=== PATIENT | male | born 2000 | race Caucasian/White ===

== ENCOUNTER 2024-07-17 16:25 | Emergency (ER) | payer MEDICAID, SELFPAY ==
[2024-07-17 16:29] VITALS: BP 144/89; PULSE 95; RESP 20; TEMP 36.9; O2SAT 97
--- NOTE | 2024-07-17 16:40 | PD.EDADULT ---
ED General RME/HPI General Chief complaint: Psychiatric Symptoms Stated complaint: MENTAL EVALUATION Time Seen by Provider: 07/17/24 16:37 Arrival date/time: 07/17/24 16:25 CC: 5150 medical clearance HPI patient is developmentally delayed, presents to the ER via EMS reports stable vital signs. The patient has occasional outbursts but is not aggressive or confrontational. Patient was witnessed throwing rocks at police when they approached the patient when the patient is asked how he is doing, the patient responded he wanted some video games. Patient is awake alert oriented to self only. Review the medical record show no prior visits to this emergency room. I do not know what this patient's baseline function is Related Data Previous Rx's ?Medication ?Instructions ?Recorded ibuprofen 600 mg tablet 600 mg PO Q8H PRN fever or pain 02/12/24 #20 tabs Allergies Allergy/AdvReac Type Severity Reaction Status Date / Time orange Allergy Severe Hives Verified 07/17/24 17:09 red dye Allergy Severe Hives Verified 07/17/24 17:09 Review of Systems Review of Systems ROS Unobtainable: unobtainable due to mental status Past Medical History Social History SMOKING STATUS: Never smoker ED Exam Narrative Physical exam: [General: Appears not in any acute distress, hyperactive with nonpurposeful outbursts, playing with toys on the gurney. Head normocephalic HEENT: Within acceptable limits Neck is supple nontender Chest equal chest rise nontender to palpation Respiratory: Clear to auscultation no wheezes crackles or rubs CV: Rate rhythm is regular no murmurs rubs or clicks Abdomen is soft nontender no masses positive bowel sounds all 4 quadrants Back: No CVA tenderness no spinous process tenderness from cervical spine thoracic and lumbar spine Skin: Intact no petechiae rash induration ulceration or crepitus Extremities: Moving all extremities against resistance cap refill less than 2 seconds neurosensory intact Neuro: Awake alert oriented x 1, self, answering simple questions appropriately. Course Course Course Narrative: Reassessed the patient at 1720, the patient seems to have a baseline loud voice stress demeanor, but is not aggressive towards anybody has not been destructive throwing items and has been asking for things to play with. At this time and to clear the patient medically as he has stable vital signs and his baseline behavior appears to be unchanged. Quality Measures none Orders Category Date Time Status CMP [Comprehensive Metabolic Panel] Stat Lab 07/17/24 16:52 Cancelled Vital Signs Vital signs: Vital Signs Temperature 98.4 F 07/17/24 16:29 Pulse Rate 95 07/17/24 16:29 Respiratory Rate 20 07/17/24 16:29 Blood Pressure 144/89 H 07/17/24 16:29 Pulse Oximetry (%) 97 07/17/24 16:29 Oxygen Delivery Method Room Air 07/17/24 16:29 MDM Patient data External records reviewed:: [facility] previous records and EMS form Clinical information provided by:: patient, EMS and law enforcement Social determinants that could affect healthcare access:: none Patient has the following chronic illnesses:: Developmental delay How is presenting disease/condition affected by chronic disease/condition?: exacerbated by Evaluation data The following diagnostics were reviewed and interpreted by me:: other (specify) (None) Lab and/or radiology exams considered but not ordered:: None Interpretation Summary: Developmentally delayed wandered from the home, care providers are here to pick the patient up he is afebrile nontoxic-appearing not in any acute distress. Medications Medications considered but not ordered:: None Medication administrations:: None Consultations Consultation(s) initiated? (list below): No Diagnosis Differential Diagnosis ED Complaint MDM: Schizophrenia, aggressive behavior, developmentally delay Most likely diagnosis given after review of the tests above:: Developmental delay Admission Indicated Admission indicated?: not indicated Explain why admission is indicated or not indicated:: Stable for discharge Admission Request Was there a request for admission?: No Disposition Plan Disposition Plan: Discharge Discharge Attestation Discharge Attestation: The patient and all family members were given an opportunity to ask questions and understood the discharge instructions. Discharge instructions specifically effects, indications for sooner follow up or return to the emergency department, and the expected course of current diagnosis. Patient condition: Stable Medical Decision Making Differential Diagnosis Differential Diagnosis: Schizophrenia, aggressive behavior, developmentally delay Discharge Plan Plan Patient Disposition: HOME (Self Care) Patient condition on transfer: Stable Prescriptions/Referrals Prescriptions/Med Rec: No Action ibuprofen 600 mg tablet 600 mg PO Q8H PRN (Reason: fever or pain) Qty: 20 0RF Referrals: Mack Vital MD [Primary Care Provider] - In 1 week Problem List Clinical Impression: Mentally disabled Patient/Caregiver Discharge Instructions Print Language: Rwandan Stand Alone Forms: Shauna Award Info., Patient Portal Info Letter PA/CAN STRIPER Supervising Physician PA/CAN STRIPER Supervising Physician: Guanaco Patel ENP
--- NOTE | 2024-07-17 18:03 | PC.CC ---
ASWJanee attempted to meet and engage patient for mental health evaluation; however, patient is alert but oriented only to self. Patient is not able to engage in assessment. ASW gained collateral information from care provider Mikala Lopez who reports patient is a [facility] Client and his worker is Eli Patel . Patient lives in a [facility] [place] [facility] and the dedicated owner operator is Amira Cole . Today the patient became upset with another client in the home and that other client told the patient fuck you which led to patient becoming emotionally unstable and he eloped from the retirement. The patient was found by a school throwing rocks at cars and then officers responded to the school placed the school on lock down and patient was subsequently transported to the hospital on a 5150-hold by [employer] Officer Allyson. It was reported that patient was also throwing rocks at the Police vehicles and Officers. Per Mikala, patient has never been suicidal or homicidal and does not have visual and auditory hallucinations. Patient is connected to a psychiatrist at [facility] and is seen monthly. Per Mikala, patient has a diagnosis of Severe Mental Retardation. The retirement is able and willing to take the patient back to the home and follow up with his outpatient provider Jass Talley. Upon clinical consultation with Iris ESPAÑA patient does not meet criteria for 5150-hold and hold will be rescinded. RAFATW provided discharge plan to provider Jorge and peace officer Kathy.
--- NOTE | 2024-07-17 18:04 | PC.NURSE ---
Patient stopped answering questions for Burmese suicide scale and psychiatric screening. Patient reside at the [facility]. Caregiver is present and states he is at his baseline. SW also present and resent the hold. States patient has severe mental retardation and does not understand the things being said to him. Patient stopped answering questions during assessment and began intermittently barking. heavy truck technician aware
[2024-07-17 18:10] VITALS: BMI 25.5
[2024-07-17 19:06] VITALS: RESP 18
== END 2024-07-17 19:07 | disposition home or self-care (01) ==
PROVIDERS: Emergency Provider Emergency Medicine; PCP Family Medicine
DX: Z00.8 Encounter for other general examination (principal); F20.9 Schizophrenia, unspecified
CPT/HCPCS: 80053; 80307; 80320; 85025; 90839; 96127; 99284; G0480

== ENCOUNTER 2025-04-24 16:56 | Emergency (ER) | payer MEDICAID, SELFPAY ==
[2025-04-24 17:13] VITALS: BP 112/66; PULSE 76; RESP 19; TEMP 37.2; O2SAT 96; BMI 26.2
--- NOTE | 2025-04-24 17:27 | EDNOTE_ITS ---
ED Wound/Laceration-RME/HPI General Chief Complaint: Wound/Laceration Stated Complaint: WOUND NEXT TO SCROTUM X 4 DAYS Time Seen by Provider: 04/24/25 17:27 Arrival date/time: 04/24/25 16:56 25-year-old male presents to the emergency room today with caregiver who reports that he noticed a small wound in the left inguinal region Limitations: no limitations Related Data Previous Rx's ?Medication ?Instructions ?Recorded ibuprofen 600 mg tablet 600 mg PO Q8H PRN fever or p ain 02/12/24 #20 tabs clindamycin HCl 300 mg capsule 300 mg PO TID 7 days #2 1 caps 04/24/25 ibuprofen 600 mg tablet 600 mg PO Q6H #30 tabs 04/24 mupirocin 2 % topical ointment 1 applic topical TID 10 days #22 04/24/25 grams Allergies Allergy/AdvReac Type Severity Reaction Status Date / Time orange Allergy Severe Hives Verified 07/17/24 17:09 red dye Allergy Severe Hives Verified 07/17/24 17:09 Review of Systems Review of Systems Systems Reviewed: All systems reviewed, normal except as documented ROS Unobtainable: other (Developmental delay) Constitutional Constitutional: Reports system reviewed and no additional complaints, except as documented, Denies fatigue, Denies fever(s) and Denies headache(s) Eyes Eyes: Reports system reviewed and no additional complaints, except as documented ENT Ears, Nose, Mouth, and Throat: Reports system reviewed and no additional complaints, except as documented, Denies dizziness and Denies headache(s) Cardiovascular Cardiovascular: Reports system reviewed and no additional complaints, except as documented, Denies chest pain, Denies dyspnea and Denies dyspnea on exertion Respiratory Respiratory: Reports system reviewed and no additional complaints, except as documented, Denies chest congestion, Denies cough, Denies dyspnea and Denies dyspnea on exertion Gastrointestinal Gastrointestinal: Reports system reviewed and no additional complaints, except as documented, Denies abdominal pain, Denies nausea and Denies vomiting Musculoskeletal Musculoskeletal: Reports system reviewed and no additional complaints, except as documented, Denies abnormal gait, Denies numbness, Denies stiffness and Denies tingling Integumentary/Breasts Skin/Breast: Reports system reviewed and no additional complaints, except as documented, Denies rash and Reports wounds (Left inguinal pain infection) Neurologic Neurologic: Reports system reviewed and no additional complaints, except as documented, Denies abnormal gait, Denies dizziness, Denies headache(s), Denies numbness and Denies tingling Psychiatric Psychiatric: Reports system reviewed and no additional complaints, except as documented and Denies anxiety Endocrine Endocrine: Denies fatigue Past Medical History Past Medical History NEUROLOGIC: Positive Neurological Disorders (Mental retardation) CARDIAC: Negative Cardiac Disorders or Congestive Heart Failure RESPIRATORY: Negative Chronic Obstructive Pulmonary Disease (COPD) GASTROINTESTINAL: Negative Gastrointestinal Disorders GENITOURINARY: Negative Genitourinary Disorders or Renal Disease MUSCULOSKELETAL: Positive Musculoskeletal Disorders (Short stature) ENDOCRINE: Positive Hypothyroidism; Negative Diabetes Mellitus Type 1 or Diabetes Mellitus Type 2 HEMATOLOGIC: Negative Blood Disorders PSYCHO/SOCIAL: Positive Bipolar Disorder, Depression, Anxiety, Behavior Problems and Attention Deficit Hyperactivity Disorder OTHER HISTORY: Positive Developmental Delay Surgical History SURGICAL: Negative Cardiac Surgery Social History SMOKING STATUS: Never smoker ED Exam General Limitations: Present no limitations General appearance: Present alert and in no apparent distress Head Head exam: Present atraumatic Eye Eye exam: Present normal appearance, PERRL and EOMI ENT ENT exam: Present normal exam, normal oropharynx and mucous membranes moist Neck Neck exam: Present normal inspection, full ROM and trachea midline Chest Chest inspection: Present normal inspection and symmetric chest wall rise Respiratory Respiratory exam: Present normal lung sounds bilaterally Cardiovascular Cardiovascular exam: Present regular rate, normal rhythm and normal heart sounds Abdominal Exam Abdominal exam: Present soft and normal bowel sounds Extremities Exam Extremities exam: Present normal inspection and full ROM Back Exam Back exam: Present normal inspection and full ROM Neurological Exam Neurological exam: Present alert, oriented X3 and CN II-XII intact Psychiatric Psychiatric exam: Present normal affect and normal mood Skin Skin exam: Present warm and dry Expanded Skin Exam Body image: 2 1. Small area of infection probably abscess which ruptured Course Quality Measures none Vital Signs Vital signs: Vital Signs Temperature 98.9 F 04/24/25 17:13 Pulse Rate 76 04/24/25 17:13 Respiratory Rate 19 04/24/25 17:13 Blood Pressure 112/66 04/24/25 17:13 Pulse Oximetry (%) 96 04/24/25 17:13 Oxygen Delivery Method Room Air 04/24/25 17:13 O2 saturation 96% on room air within normal limits Wound / Laceration MDM Narrative MDM Narrative:: 25-year-old male presents to the emergency room today with caregiver who reports that he noticed a small wound in the left inguinal region Patient cannot give an account of what happened Patient appears to have most likely had an ingrown hair which ruptured/abscess. Patient has no surrounding cellulitis or abscess patient is mild tenderness to the area Patient patient with course of antibiotics and pain medication Patient has no testicular pain or swelling Explained to the caregiver should symptoms persist or worsen patient is to return for reevaluation Patient data External records reviewed:: [facility] previous records Clinical information provided by:: patient Social determinants that could affect healthcare access:: none Patient has the following chronic illnesses:: None How is presenting disease/condition affected by chronic disease/condition?: no chronic disease Evaluation data The following diagnostics were reviewed and interpreted by me:: other (specify) Lab and/or radiology exams considered but not ordered:: Consider not ordered Interpretation Summary: N/A Medications / Prescriptions Medications or Prescriptions considered but not ordered:: Given Medication administrations:: Given Consultations Consultation(s) initiated? (list below): No Diagnosis Wound Differential Diagnosis: abscess and abrasion Most likely diagnosis given after review of the tests above:: Ruptured abscess Admission Indicated Admission indicated?: not indicated Admission Request Was there a request for admission?: No Disposition Plan Disposition Plan: Discharge Discharge Attestation Discharge Attestation: The patient and all family members were given an opportunity to ask questions and understood the discharge instructions. Discharge instructions specifically effects, indications for sooner follow up or return to the emergency department, and the expected course of current diagnosis. Patient condition: Stable Discharge Plan Plan Patient Disposition: HOME (Self Care) Discharge Disposition comment: Stable Prescriptions/Referrals Prescriptions/Med Rec: New clindamycin HCl 300 mg capsule 300 mg PO TID 7 Days Qty: 21 0RF mupirocin 2 % ointment 1 applic topical TID 10 Days Qty: 22 0RF ibuprofen 600 mg tablet 600 mg PO Q6H Qty: 30 0RF No Action ibuprofen 600 mg tablet 600 mg PO Q8H PRN (Reason: fever or pain) Qty: 20 0RF Problem List Clinical Impression: Abscess of groin, left Patient/Caregiver Discharge Instructions Education Materials: ED Abscess Antibiotic ... Additional Instructions: Please follow up with your primary care doctor in the next 24-48hrs for any worsening symptoms return here immediately Apply antibiotic cream as prescribed as well as antibiotics by mouth Please clean with soap and water Print Language: Ukrainian Stand Alone Forms: Shauna Award Info., Patient Portal Info Letter PA/COUNTER POCKET SEWER Supervising Physician PA/COUNTER POCKET SEWER Supervising Physician: Dr. Donovan
== END 2025-04-24 18:42 | disposition home or self-care (01) ==
LOC: SERX 17:38
PROVIDERS: Emergency Provider Family Medicine; PCP Family Medicine
DX: L02.214 Cutaneous abscess of groin (principal)
CPT/HCPCS: 99283